=== PATIENT | female | born 1995 | race Caucasian/White ===

== ENCOUNTER 2017-01-06 16:28 | Emergency (ER) | payer BC, OTHER ==
--- NOTE | 2017-01-06 19:01 | ED ---
General Adult HPI - General Chief complaint: OB/Uterine Contractions Stated complaint: Vaginal Bleeding 6-8 weeks Source: patient Mode of arrival: ambulatory Limitations: no limitations - History of Present Illness Initial comments: 21-year-old female states she is about 8 weeks presenting for evaluation of vaginal bleeding. She states that she had sexual intercourse about 5 days ago and initially just had a little bit of spotting and it has progressed over this time to consistent vaginal bleeding. [facility] and had a transabdominal ultrasound and although they were able to visualize a gestational sac there were unable to determine heart tones. They advised that she come to the ED for further evaluation and ultrasound transvaginal. She states that she has no abdominal pain, dysuria, fevers, chills, nausea, vomiting. - Related Data Home Medications Medication Instructions Recorded Confirmed Ktp-Yhhq-Whehm Acid 1 cap PO DAILY 01/06/17 01/06/17 [-U Capsule (formulary)] Previous Rx's Medication Instructions Recorded Nitrofurantoin Monohyd/M-Cryst 100 mg PO Q12HR #14 cap 01/06/17 [Macrobid] Allergies Allergy/AdvReac Type Severity Reaction Status Date / Time No Known Allergies Allergy Verified 01/06/17 18:41 Review of Systems ROS Statement: Those systems with pertinent positive or pertinent negative responses have been documented in the HPI. ROS Other: All systems not noted in ROS Statement are negative. Constitutional: Denies: fever, chills Eyes: Denies: eye pain, eye discharge, vision change ENT: Denies: ear pain, throat pain Respiratory: Denies: cough, dyspnea Cardiovascular: Denies: chest pain, palpitations Endocrine: Denies: fatigue, polydipsia, polyuria Gastrointestinal: Denies: abdominal pain, nausea, vomiting, diarrhea, constipation, hematemesis, melena, hematochezia Genitourinary: Reports: other (vaginal discharge ). Denies: urgency, dysuria, frequency, hematuria, discharge Musculoskeletal: Denies: back pain, arthralgia, myalgia Skin: Denies: rash, lesions, change in color, change in hair/nails, pruritus Neurological: Denies: headache, weakness Psychiatric: Denies: anxiety, depression Hematological/Lymphatic: Denies: easy bleeding, easy bruising Past Medical History Past Medical History: No Reported History History of Any Multi-Drug Resistant Organisms: None Reported Past Surgical History: No Surgical Hx Reported Past Psychological History: No Psychological Hx Reported Smoking Status: Never smoker Past Alcohol Use History: None Reported Past Drug Use History: None Reported General Exam Limitations: no limitations General appearance: alert, in no apparent distress Head exam: Present: atraumatic, normocephalic, normal inspection Eye exam: Present: normal appearance, PERRL, EOMI. Absent: scleral icterus, conjunctival injection, periorbital swelling ENT exam: Present: normal exam, mucous membranes moist Neck exam: Present: normal inspection. Absent: tenderness, meningismus, lymphadenopathy Respiratory exam: Present: normal lung sounds bilaterally. Absent: respiratory distress, wheezes, rales, rhonchi, stridor Cardiovascular Exam: Present: regular rate, normal rhythm, normal heart sounds. Absent: systolic murmur, diastolic murmur, rubs, gallop, clicks GI/Abdominal exam: Present: soft, normal bowel sounds. Absent: distended, tenderness, guarding, rebound, rigid Extremities exam: Present: normal inspection, full ROM, normal capillary refill. Absent: tenderness, pedal edema, joint swelling, calf tenderness Back exam: Present: normal inspection Neurological exam: Present: alert, oriented X3, CN II-XII intact Psychiatric exam: Present: normal affect, normal mood Skin exam: Present: warm, dry, intact, normal color. Absent: rash Course Vital Signs 01/06/17 01/06/17 01/06/17 16:39 18:47 20:38 Temperature 100 F H 99.2 F 98.4 F Pulse Rate 107 H 80 75 Respiratory 20 16 16 Rate Blood Pressure 133/72 170/90 130/68 O2 Sat by Pulse 99 99 98 Oximetry 01/06/17 01/06/17 22:34 23:00 Temperature 98.7 F 97.6 F Pulse Rate 87 98 Respiratory 16 18 Rate Blood Pressure 129/69 115/60 O2 Sat by Pulse 99 99 Oximetry Medical Decision Making - Medical Decision Making 21-year-old female at an unknown gestational age presented for evaluation of vaginal bleeding. She states that she had intercourse 6 days ago and has progressively had vaginal bleeding since then. Physical examination she has no acute abnormalities and is in no apparent distress. Given the vaginal bleeding during there is concern for threatened miscarriage. We'll obtain ultrasound transvaginally for further evaluation and obtain labs. Labs significant for bacteriuria but given her current we'll require treatment. Patient prescribed her first dose of Macrobid here in the ED. Abdominal ultrasound showed a suspected early gestation yolk sac visualized but no embryonic/ pole visualized at this time. Estimated age at 5 weeks and 4 days. This continues a concern for miscarriage given that the patient has vaginal bleeding. Patient was informed of these results and offered pelvic exam which she accepted. On pelvic exam the cervical os was closed. She was advised to follow-up with her AUTOM[employer] Dr. Blanco on Tuesday but to return to this facility if her symptoms should worsen or persist. She was informed that she would be diagnosed as a threatened miscarriage. She acknowledged an understanding of this information and agreed with this plan of care. - Lab Data Result diagrams: 01/06/17 19:15 01/06/17 19:15 Lab Results 01/06/17 01/06/17 01/06/17 Range/Units 19:15 19:15 19:15 WBC 10.2 (4.0-11.0) k/uL RBC 4.82 (3.80-5.40) m/uL Hgb 13.5 (11.4-16.0) gm/dL Hct 40.4 (34.0-46.0) % MCV 83.9 (80.0-100.0) fL MCH 28.1 (25.0-35.0) pg MCHC 33.5 (31.0-37.0) g/dL RDW 14.4 (11.5-15.5) % Plt Count 316 (150-450) k/uL Neutrophils % 67 % Lymphocytes % 25 % Monocytes % 5 % Eosinophils % 2 % Basophils % 0 % Neutrophils # 6.9 (1.3-7.7) k/uL Lymphocytes # 2.5 (1.0-4.8) k/uL Monocytes # 0.5 (0-1.0) k/uL Eosinophils # 0.2 (0-0.7) k/uL Basophils # 0.0 (0-0.2) k/uL Sodium 142 (137-145) mmol/L Potassium 3.7 (3.5-5.1) mmol/L Chloride 106 (98-107) mmol/L Carbon Dioxide 21 L (22-30) mmol/L Anion Gap 15 mmol/L BUN 8 (7-17) mg/dL Creatinine 0.60 (0.52-1.04) mg/dL Est GFR (MDRD) Af Amer >60 (>60 ml/min/1.73 sqM) Est GFR (MDRD) Non-Af >60 (>60 ml/min/1.73 sqM) Glucose 92 (74-99) mg/dL Calcium 10.6 H (8.4-10.2) mg/dL Total Bilirubin 0.5 (0.2-1.3) mg/dL AST 20 (14-36) U/L ALT 29 (9-52) U/L Alkaline Phosphatase 71 (38-126) U/L Total Protein 7.7 (6.3-8.2) g/dL Albumin 4.8 (3.5-5.0) g/dL Lipase 65 (23-300) U/L HCG, Quant 41151.4 mIU/mL Urine Color Urine Appearance (Clear) Urine pH (5.0-8.0) Ur Specific [place] (1.001-1.035) Urine Protein (Negative) Urine Glucose (UA) (Negative) Urine Ketones (Negative) Urine Blood (Negative) Urine Nitrite (Negative) Urine Bilirubin (Negative) Urine Urobilinogen (<2.0) mg/dL Ur Leukocyte Esterase (Negative) Urine RBC (0-5) /hpf Urine WBC (0-5) /hpf Ur Squamous Epith Cells (0-4) /hpf Amorphous Sediment (None) /hpf Urine Bacteria (None) /hpf Urine Mucus (None) /hpf Blood Type A Positive Blood Type Recheck No 01/06/17 Range/Units 20:45 WBC (4.0-11.0) k/uL RBC (3.80-5.40) m/uL Hgb (11.4-16.0) gm/dL Hct (34.0-46.0) % MCV (80.0-100.0) fL MCH (25.0-35.0) pg MCHC (31.0-37.0) g/dL RDW (11.5-15.5) % Plt Count (150-450) k/uL Neutrophils % % Lymphocytes % % Monocytes % % Eosinophils % % Basophils % % Neutrophils # (1.3-7.7) k/uL Lymphocytes # (1.0-4.8) k/uL Monocytes # (0-1.0) k/uL Eosinophils # (0-0.7) k/uL Basophils # (0-0.2) k/uL Sodium (137-145) mmol/L Potassium (3.5-5.1) mmol/L Chloride (98-107) mmol/L Carbon Dioxide (22-30) mmol/L Anion Gap mmol/L BUN (7-17) mg/dL Creatinine (0.52-1.04) mg/dL Est GFR (MDRD) Af Amer (>60 ml/min/1.73 sqM) Est GFR (MDRD) Non-Af (>60 ml/min/1.73 sqM) Glucose (74-99) mg/dL Calcium (8.4-10.2) mg/dL Total Bilirubin (0.2-1.3) mg/dL AST (14-36) U/L ALT (9-52) U/L Alkaline Phosphatase (38-126) U/L Total Protein (6.3-8.2) g/dL Albumin (3.5-5.0) g/dL Lipase (23-300) U/L HCG, Quant mIU/mL Urine Color Yellow Urine Appearance Cloudy H (Clear) Urine pH 6.0 (5.0-8.0) Ur Specific [place] 1.016 (1.001-1.035) Urine Protein Trace H (Negative) Urine Glucose (UA) Negative (Negative) Urine Ketones Negative (Negative) Urine Blood Moderate H (Negative) Urine Nitrite Negative (Negative) Urine Bilirubin Negative (Negative) Urine Urobilinogen <2.0 (<2.0) mg/dL Ur Leukocyte Esterase Trace H (Negative) Urine RBC 7 H (0-5) /hpf Urine WBC 8 H (0-5) /hpf Ur Squamous Epith Cells 5 H (0-4) /hpf Amorphous Sediment Rare H (None) /hpf Urine Bacteria Occasional H (None) /hpf Urine Mucus Rare H (None) /hpf Blood Type Blood Type Recheck Disposition Clinical Impression: Threatened miscarriage, Vaginal bleeding Disposition: HOME SELF-CARE Condition: Stable Instructions: Threatened Miscarriage (ED), First Trimester Vaginal Bleed (ED) Prescriptions: Nitrofurantoin Monohyd/M-Cryst [Macrobid] 100 mg PO Q12HR #14 cap Referrals: Gavin Muller MD [Primary Care Provider] - 1-2 days Cleveland Blanco MD [STAFF PHYSICIAN] - 1-2 days Time of Disposition: 22:07
[2017-01-06 19:35] LABS: Basophils % (A) 0 %; CH 28.1; CHCM 33.6; Eosinophils # (A) 0.2 k/uL (0-0.7); Eosinophils % (A) 2 %; HCT 40.4 % (34.0-46.0); HGB 13.5 gm/dL (11.4-16.0); Luc # (Auto) 0.16; Luc % (Auto) 2; Lymphocytes # (A) 2.5 k/uL (1.0-4.8); Lymphocytes % (A) 25 %; MCH 28.1 pg (25.0-35.0); MCHC 33.5 g/dL (31.0-37.0); MCV 83.9 fL (80.0-100.0); Mean Platelet Volume 6.6; Monocytes # (A) 0.5 k/uL (0-1.0); Monocytes % (A) 5 %; Neutrophils # (A) 6.9 k/uL (1.3-7.7); Neutrophils % (A) 67 %; RBC 4.82 m/uL (3.80-5.40); RDW 14.4 % (11.5-15.5); WBC 10.2 k/uL (4.0-11.0); WBC (Perox) 10.27
[2017-01-06 19:36] LABS: ALT 29 U/L (9-52); AST 20 U/L (14-36); Alkaline Phosphatase 71 U/L (38-126); Anion Gap 15 mmol/L; Blood Urea Nitrogen 8 mg/dL (7-17); Calcium 10.6 mg/dL (8.4-10.2); Carbon Dioxide 21 mmol/L (22-30); Chloride 106 mmol/L (98-107); Glucose 92 mg/dL (74-99); Non-African American GFR(MDRD) >60 (>60 ml/min/1.73 sqM); Potassium 3.7 mmol/L (3.5-5.1); Sodium 142 mmol/L (137-145); Total Bilirubin 0.5 mg/dL (0.2-1.3); Total Protein 7.7 g/dL (6.3-8.2)
[2017-01-06 19:49] LABS: HCG,Quantitative Serum 14041.4 mIU/mL
--- NOTE | 2017-01-06 20:15 | US ---
EXAMINATION TYPE: US OB <=14 WKS TRANSVAG EXAM PERFORMED: Transvaginal (TV) and Transabdominal (TA) CLINICAL HISTORY: Pain. Spotting Date of LMP: 10/29/2016 Beta HC,041 DATE OF EXAM: 01/06/2017 7:57 PM COMPARISON: NONE EXAM MEASUREMENTS: GESTATIONAL AGE / DATING Physician Established: Not established Dates by LMP: (9 weeks/6 days) EDC: 08/05/2017 Dates by First Scan: No previous at this facility Dates by Current Scan for: (5 weeks/4 days) EDC: 09/04/2017 MATERNAL ANATOMY Uterus: 7.8 x 7.1 x 7.4 cm Right Ovary: 2.4 x 1.9 x 2.4 Left Ovary: 2.0 x 1.8 x 1.5 cm Post CDS / Adnexa: wnl Presence of free fluid: No Presence of corpus luteal cyst: Yes, right ovary measuring 1.7 x 1.7 x 1.3 cm Presence of subchorionic bleed: No GESTATION / SURVEY MSD: 1.37 cm (5 weeks/4 days) Yolk Sac (normal less than 6mm): 5 mm IUP: Single intrauterine identified, with spherical yolk sac but without embryonic/ po le seen at this time. IMPRESSION: SUSPECT EARLY GESTATION. YOLK SAC VISUALIZED, BUT NO EMBRYONIC/ POLE VISUALIZED AT THIS TIME.
[2017-01-06 21:02] LABS: Amorphous Sediment,Urine Rare /hpf; Appearance,Urine Cloudy (Clear); Bacteria,Urine Occasional /hpf; Bilirubin,Urine Negative (Negative); Glucose,Urine (UA) Negative (Negative); Ketones,Urine Negative (Negative); Leukocyte Esterase,Urine Trace (Negative); Mucus,Urine Rare /hpf; Nitrite,Urine Negative (Negative); Particle Count 4448; Protein,Urine Trace (Negative); RBC,Urine 7 /hpf (0-5); Specific Gravity,Urine 1.016 (1.001-1.035); Squamous Epithelial Cell,Urine 5 /hpf (0-4); UA Billing (MACRO vs. MICRO) MICRO; Urobilinogen,Urine <2.0 mg/dL (<2.0); WBC,Urine 8 /hpf (0-5)
[2017-01-06] MEDS ORDERED: NITROFURANTOIN MONOHYD/M-CRYST 100 MG CAP PO STA (21:08)
[2017-01-06 23:01] VITALS: BP 115/60; PULSE 98; RESP 18; TEMP 97.6
== END 2017-01-06 23:01 | disposition home or self-care (01) ==
LOC: EC 16:28
DX: O20.0 Threatened abortion (principal); Z3A.08 8 weeks gestation of pregnancy; Z79.899 Other long term (current) drug therapy
CPT/HCPCS: 36415; 76801; 76817; 80053; 81001; 83690; 84702; 85025; 86900; 86901; 99284

== ENCOUNTER → 2017-01-14 | Outpatient (CLI) | payer BC, OTHER ==
--- NOTE | 2017-01-14 15:27 | US ---
EXAMINATION TYPE: US OB <=14 wks transvag DATE OF EXAM: 01/14/2017 1:19 PM COMPARISON: 01/06/2017 CLINICAL HISTORY: 22-year-old female with abnormal Ultrasound Z36. Bleeding EXAM PERFORMED: Multiple transabdominal sonographic images of the pelvis are obtained. Transvaginal scanning was medically necessary to better evaluate the anatomy. EXAM MEASUREMENTS: GESTATIONAL AGE / DATING Physician Established: ( 7 weeks/2 days) EDC: 08/31/2017 Dates by LMP: EDC: 08/05/2017 Dates by First Scan: ( 6 weeks/5 days) EDC: 09/04/2017 Dates by Current Scan for: N/A MATERNAL ANATOMY Uterus: 9.1 x 6.5 x 5.0cm Right Ovary: 2.8 x 2.4 x 1.9cm Left Ovary: 3.1 x 2.5 x 1.5cm Post CDS / Adnexa: wnl Presence of free fluid: no Presence of corpus luteal cyst: not seen Presence of subchorionic bleed: no GESTATION / SURVEY No IUP seen today Endometrium = 1.6cm DELIVERER OUTSIDE NOTES: Probable spontaneous IMPRESSION: Thickened endometrium (1.6 cm) without any visualized intrauterine . Correlate with serial b eta hCG as interval spontaneous is suggested.
== END | disposition home or self-care (01) ==
LOC: RADUSWWP 12:53
PROVIDERS: ATTEND Obstetrics & Gynecology
DX: Z36 Encounter for antenatal screening of mother (principal); R93.8 Abnormal findings on diagnostic imaging of other specified body structures
CPT/HCPCS: 76801; 76817

== ENCOUNTER 2018-09-04 05:55 | Inpatient (IN) | payer BC, OTHER ==
[2018-09-04] MEDS ORDERED: CARBOPROST TROMETHAMINE 250 MCG/ML 1 ML AMP IM PRN (06:07)
[2018-09-04] MEDS ORDERED: METHYLERGONOVINE 0.2 MG/ML 1 ML AMP IM PRN (06:07)
[2018-09-04] MEDS ORDERED: OXYTOCIN 10 UNIT/ML 1 ML VIAL IM PRN (06:07)
[2018-09-04] MEDS ORDERED: LIDOCAINE 1% INJ 10MG/ML (20 ML MDV) SQ PRN (06:07)
[2018-09-04] MEDS ORDERED: TERBUTALINE 1 MG/ML VIAL SQ PRN (06:07)
[2018-09-04] MEDS ORDERED: OXYTOCIN 20 UNITS/1000 ML NS 1,000 ML IV SCH ×2 (06:15→17:30)
[2018-09-04] MEDS: LACTATED RINGERS 1,000 ML IV SCH ×3 (06:16→14:33)
[2018-09-04 06:21] VITALS: BMI 40.0
[2018-09-04 06:26] LABS: Basophils % (A) 0 %; Eosinophils # (A) 0.2 k/uL (0-0.7); Eosinophils % (A) 2 %; HCT 35.6 % (34.0-46.0); HGB 11.9 gm/dL (11.4-16.0); Hypochromasia Slight; Lymphocytes # (A) 2.5 k/uL (1.0-4.8); Lymphocytes % (A) 26 %; MCH 27.5 pg (25.0-35.0); MCHC 33.3 g/dL (31.0-37.0); MCV 82.6 fL (80.0-100.0); Mean Platelet Volume 8.2; Monocytes # (A) 0.5 k/uL (0-1.0); Monocytes % (A) 6 %; Neutrophils # (A) 6.1 k/uL (1.3-7.7); Neutrophils % (A) 64 %; Platelet Count 280 k/uL (150-450); RBC 4.31 m/uL (3.80-5.40); RDW 14.9 % (11.5-15.5); WBC 9.6 k/uL (3.8-10.6)
[2018-09-04] MEDS ORDERED: SODIUM CHLORIDE 0.9% 100 ML BAG ONE (11:30)
[2018-09-04] MEDS ORDERED: ROPIVACAINE 5MG/ML 20ML VIAL ONE (11:30)
[2018-09-04] MEDS ORDERED: fentaNYL (PF) 50 MCG/ML 5 ML AMP ONE (11:30)
[2018-09-04] MEDS ORDERED: BENZOCAINE/MENTHOL SPRAY 1 GM/SPRAY AEROSOL TOPICAL PRN (17:25)
[2018-09-04] MEDS ORDERED: SIMETHICONE 80 MG CHEWABLE PO PRN (17:25)
[2018-09-04] MEDS ORDERED: WITCH HAZEL 1 EACH MED..PAD TOPICAL PRN (17:25)
[2018-09-04] MEDS ORDERED: diphenhydrAMINE 50 MG/ML 1 ML VIAL IVP PRN ×2 (17:25)
[2018-09-04] MEDS ORDERED: HYDROCORTISONE 2.5% RECTAL CREAM 30 GM TUBE RECTAL PRN (17:25)
[2018-09-04] MEDS ORDERED: diphenhydrAMINE 50 MG CAP PO PRN (17:25)
[2018-09-04] MEDS ORDERED: LANOLIN CREAM 5 GM TUBE TOPICAL PRN (17:25)
[2018-09-04] MEDS ORDERED: ACETAMINOPHEN TAB 325 MG TAB PO PRN (17:25)
[2018-09-04] MEDS ORDERED: ZOLPIDEM 5 MG TAB PO PRN (17:25)
[2018-09-04] MEDS ORDERED: diphenhydrAMINE 25 MG CAP PO PRN (17:25)
[2018-09-04] MEDS: IBUPROFEN 600 MG TAB PO PRN (19:15)
--- NOTE | 2018-09-04 20:03 | P.HPOB ---
History of Present Illness H&P Date: 09/04/18 Chief Complaint: Induction of Labor 23 year old presents at 40 weeks 3 days for induction of labor. Her cervix is 3 cm dilated, 80% effaced, and -2 station. She is estevan irregularly. heart tones 135-140 with moderate variability and reactive. Review of Systems All systems: negative Constitutional: Denies chills, Denies fever Eyes: denies blurred vision, denies pain Ears, nose, mouth and throat: Denies headache, Denies sore throat Cardiovascular: Denies chest pain, Denies shortness of breath Respiratory: Denies cough Gastrointestinal: Denies abdominal pain, Denies diarrhea, Denies nausea, Denies vomiting Genitourinary: Denies dysuria, Denies hematuria Musculoskeletal: Denies myalgias Integumentary: Denies pruritus, Denies rash Neurological: Denies numbness, Denies weakness Psychiatric: Denies anxiety, Denies depression Endocrine: Denies fatigue, Denies weight change Past Medical History Past Medical History: No Reported History Additional Past Medical History / Comment(s): Obstetric history: First was a spontaneous . This is her second . She's had care with me since 11 weeks gestation. Blood type is A+, amylase negative, rubella nonimmune, hep is B- RPR nonreactive, toxo negative. History of Any Multi-Drug Resistant Organisms: None Reported Past Surgical History: No Surgical Hx Reported Past Anesthesia/Blood Transfusion Reactions: No Reported Reaction Past Psychological History: No Psychological Hx Reported Smoking Status: Never smoker Past Alcohol Use History: None Reported Past Drug Use History: None Reported - Past Family History Father Family Medical History: Diabetes Mellitus Medications and Allergies Home Medications Medication Instructions Recorded Confirmed Type Iyd-Terf-Pzzzx Acid 1 cap PO DAILY 01/06/17 09/04/18 History [-U Capsule (formulary)] Allergies Allergy/AdvReac Type Severity Reaction Status Date / Time No Known Allergies Allergy Verified 09/04/18 06:07 Exam Osteopathic Statement: *. No significant issues noted on an osteopathic structural exam other than those noted in the History and Physical/Consult. Vital Signs Temp Pulse Resp BP Pulse Ox 09/04/18 18:44 98.9 F 127 H 18 134/61 09/04/18 18:14 120 H 18 120/62 09/04/18 17:59 125 H 18 120/63 09/04/18 17:44 125 H 18 119/67 09/04/18 17:29 98.6 F 107 H 18 115/61 09/04/18 17:14 102 H 18 120/66 09/04/18 06:06 98.1 F 117 H 16 138/81 98 Intake and Output 09/04/18 09/04/18 09/04/18 06:59 14:59 22:59 Output Total 200 Balance -200 Output: Urine 200 Other: Weight 112.491 kg Heart: Regular rate and rhythm Lungs: Clear to auscultation bilaterally Abdomen: Soft, nontender Extremities: Negative Homans sign Results Result Diagrams: 09/04/18 06:15 Assessment and Plan (1) Normal labor Current Visit: Yes Status: Acute Code(s): O80 - ENCOUNTER FOR FULL-TERM UNCOMPLICATED DELIVERY; Z37.9 - OUTCOME OF DELIVERY, UNSPECIFIED SNOMED Code(s ): 67081263 Plan: 1. induction of labor with amniotomy and pitocin 2. anticipate normal vaginal delivery
--- NOTE | 2018-09-04 20:05 | P.PROBDLV ---
Vaginal Delivery Note - . Vaginal Delivery Note: 23 year old presents at 40 weeks 3 days for induction of labor. Her cervix is 3 cm dilated, 80% effaced, and -2 station. She is estevan irregularly. heart tones 135-140 with moderate variability and reactive. Amniotomy was performed at 7:45 AM clear fluid noted, Pitocin had been started. When she was 5 cm dilated she was uncomfortable and wanted epidural and did get this for pain control. Her cervix was completely dilated at 1505. She pushed, delivered a viable female infant over intact perineum under epidural anesthesia at 1622. Head delivered OA, nuchal cord 1 easily reduced, anterior shoulder delivered gentle downward guidance all by posterior shoulder and rest of body. Nose and mouth bulb suctioned, cord clamped and cut, infant placed on mother's abdomen. Apgars 4 at 1 minute, 5 at 5 minutes, 8 at 10 minutes. Weight 8 lbs. 11 oz. Placenta delivered spontaneous the, intact with three-vessel cord at 1626. Vagina, cervix, and perineum were inspected. Second -degree midline laceration and bilateral sulcal tears were repaired with 2-0 Vicryl. Estimated blood loss 300 mL mother and baby in stable condition.
[2018-09-04] MEDS: SENNOSIDES-DOCUSATE SODIUM 1 EACH TAB PO SCH (21:15)
[2018-09-05 07:38] LABS: Basophils # (A) 0.1 k/uL (0-0.2); Basophils % (A) 0 %; Eosinophils # (A) 0.1 k/uL (0-0.7); Eosinophils % (A) 1 %; HCT 25.9 % (34.0-46.0); Hypochromasia Slight; Lymphocytes # (A) 2.9 k/uL (1.0-4.8); Lymphocytes % (A) 21 %; MCH 27.4 pg (25.0-35.0); MCHC 32.8 g/dL (31.0-37.0); MCV 83.5 fL (80.0-100.0); Mean Platelet Volume 8.5; Monocytes # (A) 0.9 k/uL (0-1.0); Monocytes % (A) 6 %; Neutrophils # (A) 9.8 k/uL (1.3-7.7); Neutrophils % (A) 70 %; Platelet Count 247 k/uL (150-450); RBC 3.11 m/uL (3.80-5.40); RDW 15.4 % (11.5-15.5)
[2018-09-05] MEDS: SENNOSIDES-DOCUSATE SODIUM 1 EACH TAB PO SCH ×2 (07:48→22:09)
[2018-09-05 07:49] LABS: HGB 8.5 gm/dL (11.4-16.0)
--- NOTE | 2018-09-05 08:36 | P.PNOBGVD ---
Subjective - Subjective Principal diagnosis: S/P NVD PPD #1 Interval history: Pt seen and examined. Denies N/V, F/C, CP, SOB, calf pain. She does still have a lot of swelling in the vulva. Using ice and witch marquis. Patient reports: Reports appetite normal, Reports voiding normally, Reports pain well controlled, Reports ambulating normally Objective - Latest Vital Signs Latest vital signs: Vital Signs Temp Pulse Resp BP Pulse Ox 09/05/18 07:44 98.2 F 94 18 134/79 100 09/05/18 04:00 98.2 F 85 18 128/70 99 09/05/18 00:00 98.8 F 112 H 17 121/76 98 09/04/18 20:00 112 H 130/85 09/04/18 19:14 98.8 F 130 H 18 122/67 98 09/04/18 18:44 98.9 F 127 H 18 134/61 09/04/18 18:14 120 H 18 120/62 09/04/18 17:59 125 H 18 120/63 09/04/18 17:44 125 H 18 119/67 09/04/18 17:29 98.6 F 107 H 18 115/61 09/04/18 17:14 102 H 18 120/66 Intake and Output 09/04/18 09/05/18 09/05/18 22:59 06:59 14:59 Output Total 200 Balance -200 Output: Urine 200 Other: # Voids 1 - Exam Lungs: bilateral: normal Chest: Normal S1, Normal S2 Extremities: Present: normal Abdomen: Present: normal appearance, soft Uterus: Present: normal, firm - Labs Labs: Abnormal Lab Results - Last 24 Hours (Table) 09/05/18 Range/Units 06:40 WBC 14.0 H (3.8-10.6) k/uL RBC 3.11 L (3.80-5.40) m/uL Hgb 8.5 L D (11.4-16.0) gm/dL Hct 25.9 L (34.0-46.0) % Neutrophils # 9.8 H (1.3-7.7) k/uL Assessment and Plan (1) Normal labor Current Visit: Yes Status: Resolved Code(s): O80 - ENCOUNTER FOR FULL-TERM UNCOMPLICATED DELIVERY; Z37.9 - OUTCOME OF DELIVERY, UNSPECIFIED SNOMED Code(s ): 08946716 (2) Normal vaginal delivery Current Visit: Yes Status: Acute Code(s): O80 - ENCOUNTER FOR FULL-TERM UNCOMPLICATED DELIVERY SNOMED Code(s): 69889427 Plan: 1. cont pp care
[2018-09-05] MEDS ORDERED: MEASLES-MUMPS-RUBELLA VACC/PF 12,500 UNIT/0.5 ML VIAL SQ ONE (09:19)
[2018-09-05] MEDS: IBUPROFEN 600 MG TAB PO PRN ×2 (14:37→21:59)
[2018-09-06] MEDS: SENNOSIDES-DOCUSATE SODIUM 1 EACH TAB PO SCH (08:00)
--- NOTE | 2018-09-06 08:33 | P.DS ---
Providers Date of admission: 09/04/18 05:55 Expected date of discharge: 09/06/18 Attending physician: Kaykay Jacobsen Primary care physician: Stated None - Discharge Diagnosis(es) (1) Normal labor Current Visit: Yes Status: Resolved (2) Normal vaginal delivery Current Visit: Yes Status: Acute Hospital Course: Presented for induction of labor. She underwent normal vaginal delivery. her course was uncomplicated. She'll be discharged home day #2 in stable condition to follow-up with me in 6 weeks. Plan - Discharge Summary New Discharge Prescriptions: New Ibuprofen [Motrin] 800 mg PO Q8H PRN #30 tab PRN Reason: Pain No Action Stv-Ayvg-Sajte Acid [-U Capsule (formulary)] 1 cap PO DAILY Discharge Medication List Aqt-Dwit-Uhpgf Acid [-U Capsule (formulary)] 1 cap PO DAILY [History] Ibuprofen [Motrin] 800 mg PO Q8H PRN #30 tab 09/06/18 [Rx] Follow up Appointment(s)/Referral(s): Kaykay Jacobsen DO [Doctor of Osteopathic Medicine] - 6 Weeks Discharge Disposition: HOME SELF-CARE
[2018-09-06] MEDS: IBUPROFEN 600 MG TAB PO PRN (08:49)
[2018-09-06 09:25] VITALS: RESP 18
[2018-09-06 16:39] VITALS: BP 128/70; PULSE 106; TEMP 98.4
== END 2018-09-06 18:13 | disposition home or self-care (01) | DRG 807 ==
LOC: 4FBP 05:55
PROVIDERS: ADMIT Obstetrics & Gynecology; ATTEND Obstetrics & Gynecology
PROC: 10E0XZZ Delivery of Products of Conception, External Approach (ICD-10-PCS; principal; 2018-09-04)
PROC: 00HU33Z Insertion of Infusion Device into Spinal Canal, Percutaneous Approach (ICD-10-PCS; 2018-09-04)
PROC: 3E0R3BZ Introduction of Anesthetic Agent into Spinal Canal, Percutaneous Approach (ICD-10-PCS; 2018-09-04)
PROC: 10907ZC Drainage of Amniotic Fluid, Therapeutic from Products of Conception, Via Natural or Artificial Opening (ICD-10-PCS; 2018-09-04)
PROC: 3E033VJ Introduction of Other Hormone into Peripheral Vein, Percutaneous Approach (ICD-10-PCS; 2018-09-04)
DX: O69.81X0 Labor and delivery complicated by cord around neck, without compression, not applicable or unspecified (principal); Z37.0 Single live birth; O99.62 Diseases of the digestive system complicating childbirth; K21.9 Gastro-esophageal reflux disease without esophagitis; Z3A.40 40 weeks gestation of pregnancy; Z83.3 Family history of diabetes mellitus
CPT/HCPCS: 85025; 86850; 86900; 86901; 88307; 90707

== ENCOUNTER 2020-05-09 06:00 | Inpatient (IN) | payer BC, OTHER ==
[2020-05-09] MEDS ORDERED: CARBOPROST TROMETHAMINE 250 MCG/ML 1 ML AMP IM PRN (06:19)
[2020-05-09] MEDS ORDERED: LIDOCAINE 0.5% (PF) 5 MG/ML (50 ML SDV) SQ PRN (06:19)
[2020-05-09] MEDS ORDERED: METHYLERGONOVINE 0.2 MG/ML 1 ML AMP IM PRN (06:19)
[2020-05-09] MEDS ORDERED: OXYTOCIN 30 UNITS/500 ML NS 30 UNIT in SALINE 1 500ML.BAG IV SCH (06:19)
[2020-05-09] MEDS ORDERED: OXYTOCIN 10 UNIT/ML 1 ML VIAL IM PRN (06:19)
[2020-05-09] MEDS ORDERED: TERBUTALINE 1 MG/ML VIAL SQ PRN (06:19)
[2020-05-09 06:48] LABS: Basophils # (A) 0.1 k/uL (0-0.2); Basophils % (A) 1 %; Eosinophils # (A) 0.2 k/uL (0-0.7); Eosinophils % (A) 2 %; HCT 38.6 % (34.0-46.0); HGB 12.7 gm/dL (11.4-16.0); Lymphocytes # (A) 2.6 k/uL (1.0-4.8); Lymphocytes % (A) 29 %; MCHC 32.9 g/dL (31.0-37.0); MCV 85.2 fL (80.0-100.0); Mean Platelet Volume 7.4; Monocytes # (A) 0.4 k/uL (0-1.0); Monocytes % (A) 5 %; Neutrophils # (A) 5.7 k/uL (1.3-7.7); Neutrophils % (A) 62 %; Platelet Count 275 k/uL (150-450); RBC 4.53 m/uL (3.80-5.40); RDW 14.4 % (11.5-15.5); WBC 9.2 k/uL (3.8-10.6)
[2020-05-09] MEDS: LACTATED RINGERS 1,000 ML IV SCH ×2 (06:48→11:14)
[2020-05-09] MEDS ORDERED: SODIUM CHLORIDE 0.9% 100 ML BAG ONE (10:35)
[2020-05-09] MEDS ORDERED: fentaNYL (PF) 50 MCG/ML 5 ML AMP ONE (10:35)
[2020-05-09] MEDS ORDERED: ROPIVACAINE 5MG/ML 20ML VIAL ONE (10:35)
--- NOTE | 2020-05-09 12:55 | P.HPOB ---
History of Present Illness H&P Date: 05/09/20 Chief Complaint: Induction of labor 25-year-old presents at 38 weeks for induction of labor. The baby is IUGR, ultrasound one week ago showed 5 lbs. 5 oz. under the 10th percentile for weight, CRIS was 13 cm. Her cervix is 3 cm solid, 70% effaced, and -2 station. She is estevan irregularly. heart tones 130 with moderate variability and reactive. Review of Systems All systems: negative Constitutional: Denies chills, Denies fever Eyes: denies blurred vision, denies pain Ears, nose, mouth and throat: Denies headache, Denies sore throat Cardiovascular: Denies chest pain, Denies shortness of breath Respiratory: Denies cough Gastrointestinal: Denies abdominal pain, Denies diarrhea, Denies nausea, Denies vomiting Genitourinary: Denies dysuria, Denies hematuria Musculoskeletal: Denies myalgias Integumentary: Denies pruritus, Denies rash Neurological: Denies numbness, Denies weakness Psychiatric: Denies anxiety, Denies depression Endocrine: Denies fatigue, Denies weight change Past Medical History Past Medical History: No Reported History Additional Past Medical History / Comment(s): Obstetric history: First two pregnancies were spontaneous . Third was a normal vaginal delivery 8 lbs. 11 oz. This is her fourth . She's had care with ms Blood type is A+, GBS negative, rubella immune, hep is B- RPR non reactive, toxo negative. History of Any Multi-Drug Resistant Organisms: None Reported Past Surgical History: No Surgical Hx Reported Past Anesthesia/Blood Transfusion Reactions: No Reported Reaction Past Psychological History: No Psychological Hx Reported Smoking Status: Never smoker Past Alcohol Use History: None Reported Past Drug Use History: None Reported - Past Family History Father Family Medical History: Diabetes Mellitus Medications and Allergies Home Medications Medication Instructions Recorded Confirmed Type No Known Home Medications 05/09/20 05/09/20 History Allergies Allergy/AdvReac Type Severity Reaction Status Date / Time No Known Allergies Allergy Verified 05/09/20 06:18 Exam Osteopathic Statement: *. No significant issues noted on an osteopathic structural exam other than those noted in the History and Physical/Consult. Vital Signs Temp Pulse Resp BP Pulse Ox 05/09/20 06:25 97.8 F 109 H 16 133/63 95 Intake and Output 05/08/20 05/09/20 05/09/20 22:59 06:59 14:59 Other: Weight 108.862 kg Heart: Regular rate and rhythm Lungs: Clear to auscultation bilaterally Abdomen: Soft, nontender Extremities: Negative Homans sign Results Result Diagrams: 05/09/20 06:20 Assessment and Plan (1) Normal labor Current Visit: No Status: Resolved Code(s): O80 - ENCOUNTER FOR FULL-TERM U NCOMPLICATED DELIVERY; Z37.9 - OUTCOME OF DELIVERY, UNSPECIFIED SNOMED Code(s): 71137032 Plan: 1. Amniotomy and Pitocin for induction of labor 2. Anticipate normal vaginal delivery
[2020-05-09] MEDS ORDERED: ZOLPIDEM 5 MG TAB PO PRN (14:49)
[2020-05-09] MEDS ORDERED: diphenhydrAMINE 50 MG CAP PO PRN (14:49)
[2020-05-09] MEDS ORDERED: IBUPROFEN 600 MG TAB PO PRN (14:49)
[2020-05-09] MEDS ORDERED: diphenhydrAMINE 25 MG CAP PO PRN (14:49)
[2020-05-09] MEDS ORDERED: HYDROCORTISONE 2.5% RECTAL CREAM 30 GM TUBE RECTAL PRN (14:49)
[2020-05-09] MEDS ORDERED: BENZOCAINE/MENTHOL SPRAY 1 GM/SPRAY AEROSOL TOPICAL PRN (14:49)
[2020-05-09] MEDS ORDERED: SIMETHICONE 80 MG CHEWABLE PO PRN (14:49)
[2020-05-09] MEDS ORDERED: LANOLIN CREAM 5 GM TUBE TOPICAL PRN (14:49)
[2020-05-09] MEDS ORDERED: OXYTOCIN 20 UNITS/1000 ML NS 1,000 ML IV SCH (15:00)
--- NOTE | 2020-05-09 17:45 | P.PROBDLV ---
Vaginal Delivery Note - . Vaginal Delivery Note: 25-year-old presents at 38 weeks for induction of labor. The baby is IUGR, ultrasound one week ago showed 5 lbs. 5 oz. under the 10th percentile for weight, CRIS was 13 cm. Her cervix is 3 cm solid, 70% effaced, and -2 station. She is estevan irregularly. heart tones 130 with moderate variability and reactive. Pitocin was started. Amniotomy performed at 7:56 AM clear fluid noted. When she was uncomfortable she did get an epidural. Her cervix was completely dilated just after 1330. She pushed, delivered a viable female over intact perineum under epidural anesthesia at 1350. Head delivered OA, anterior shoulder delivered gentle downward guidance of the posterior shoulder and rest of body. Nose and mouth bulb suctioned, cord clamped and cut, infant placed mother's abdomen. Apgars 9, 9, weight 6 pounds 0.5 ounces. Placenta delivered spontaneous, intact with three-vessel cord at 1352. Vagina, cervix, perineum inspected. Second-degree midline laceration was repaired with 3-0 Vicryl. Quantitative blood loss 128 mL. Mother and baby in stable condition.
[2020-05-09] MEDS: SENNOSIDES-DOCUSATE SODIUM 1 EACH TAB PO SCH (20:10)
[2020-05-10 00:30] VITALS: RESP 16
[2020-05-10 07:21] LABS: Basophils # (A) 0.1 k/uL (0-0.2); Basophils % (A) 1 %; Eosinophils # (A) 0.3 k/uL (0-0.7); Eosinophils % (A) 3 %; HCT 33.5 % (34.0-46.0); HGB 10.9 gm/dL (11.4-16.0); Lymphocytes # (A) 2.6 k/uL (1.0-4.8); Lymphocytes % (A) 25 %; MCH 27.8 pg (25.0-35.0); MCHC 32.4 g/dL (31.0-37.0); MCV 85.9 fL (80.0-100.0); Mean Platelet Volume 7.7; Monocytes # (A) 0.5 k/uL (0-1.0); Monocytes % (A) 5 %; Neutrophils # (A) 6.7 k/uL (1.3-7.7); Neutrophils % (A) 66 %; Platelet Count 246 k/uL (150-450); RDW 14.5 % (11.5-15.5); WBC 10.2 k/uL (3.8-10.6)
[2020-05-10] MEDS: SENNOSIDES-DOCUSATE SODIUM 1 EACH TAB PO SCH (08:29)
[2020-05-10] MEDS: ACETAMINOPHEN TAB 325 MG TAB PO PRN ×2 (08:29→12:07)
--- NOTE | 2020-05-10 09:41 | P.DS ---
Providers Date of admission: 05/09/20 06:05 Expected date of discharge: 05/10/20 Attending physician: Kaykay Jacobsen Primary care physician: Stated None - Discharge Diagnosis(es) (1) Normal vaginal delivery Current Visit: No Status: Acute Hospital Course: Patient presented for induction of labor. She underwent a normal vaginal delivery. course was uncomplicated. She denies nausea, vomiting, chest pain, shortness of breath or any calf pain. She'll be discharged home day #1 in stable condition to follow-up with me in 6 weeks. Plan - Discharge Summary New Discharge Prescriptions: New Ibuprofen [Motrin] 600 mg PO Q6HR PRN #30 tab PRN Reason: Mild Pain Or Fever >= 100.5 Discharge Medication List Ibuprofen [Motrin] 600 mg PO Q6HR PRN #30 tab 05/10/20 [Rx] Follow up Appointment(s)/Referral(s): Kaykay Jacobsen DO [Doctor of Osteopathic Medicine] - 6 Weeks Discharge Disposition: HOME SELF-CARE
[2020-05-10 12:00] VITALS: BP 122/80; PULSE 70; TEMP 97.9
== END 2020-05-10 15:00 | disposition home or self-care (01) | DRG 807 ==
LOC: 4FBP 06:05
PROVIDERS: ADMIT Obstetrics & Gynecology; ATTEND Obstetrics & Gynecology
PROC: 00HU33Z Insertion of Infusion Device into Spinal Canal, Percutaneous Approach (ICD-10-PCS; principal; 2020-05-09)
PROC: 0KQM0ZZ Repair Perineum Muscle, Open Approach (ICD-10-PCS; principal; 2020-05-09)
PROC: 10E0XZZ Delivery of Products of Conception, External Approach (ICD-10-PCS; principal; 2020-05-09)
PROC: 3E0R3BZ Introduction of Anesthetic Agent into Spinal Canal, Percutaneous Approach (ICD-10-PCS; principal; 2020-05-09)
DX: O70.1 Second degree perineal laceration during delivery (principal); Z37.0 Single live birth; Z3A.38 38 weeks gestation of pregnancy; Z83.3 Family history of diabetes mellitus
CPT/HCPCS: 85025; 86850; 86900; 86901; 88307

== ENCOUNTER → 2022-12-23 | Outpatient (CLI) | payer OTHER ==
--- NOTE | 2022-12-23 16:33 | US ---
EXAMINATION TYPE: Transabdominal DATE OF EXAM: 12/23/2022 4:18 PM COMPARISON: NONE CLINICAL INDICATION: Female, 27 years old with history of Z36.89 CONFIRM GESTATIONAL AGE AND VIABILIT Y; Dates EXAM PERFORMED: Transabdominal (TA) EXAM MEASUREMENTS: GESTATIONAL AGE / DATING Physician Established: Not yet established Dates by LMP: (12 weeks/4 days) EDC: 07/03/2023 Dates by First Scan: No previous this is first scan Dates by Current Scan for: (12 weeks/3 days) EDC: 07/04/2023 MATERNAL ANATOMY Uterus: 15.0 x 10.0 x 7.5 cm Right Ovary: 3.0 x 1.9 x 1.1 cm Left Ovary: not visualized Post CDS / Adnexa: wnl Presence of free fluid: no Presence of corpus luteal cyst: not visualized Presence of subchorionic bleed: no GESTATION / SURVEY CRL: 5.8 cm (12 weeks/3 days) MSD: seen, not measured Yolk Sac (normal less than 6mm): Not visualized Heart Rate: 155 bpm Rhythm: Normal IUP: Viable IUP Age Appropriate Anatomy Limbs: Visualized Calvarium: Visualized Date of LMP: 09/26/2022, Beta HcG (if available): Not available at this time GS and CRL visualized at time of scan with FHT's of 155 bpm. Single live intrauterine gestation. IMPRESSION: Single live intrauterine gestation with estimated gestational age of 12 weeks 3 days and estimated du e date of 07/04/2023.
== END | disposition home or self-care (01) ==
LOC: RADUSWWP 15:51
PROVIDERS: ATTEND Obstetrics & Gynecology
DX: Z36.89 Encounter for other specified antenatal screening (principal); Z3A.12 12 weeks gestation of pregnancy
CPT/HCPCS: 76801

== ENCOUNTER 2023-01-05 20:40 | Emergency (ER) | payer OTHER ==
--- NOTE | 2023-01-05 22:18 | ED ---
Female Urogenital HPI - General Chief complaint: Vaginal Bleeding Stated complaint: Vaginal Bleeding, 15 weeks Time Seen by Provider: 01/05/23 22:16 Source: patient, RN notes reviewed Mode of arrival: ambulatory Limitations: no limitations - History of Present Illness Initial comments: Patient is a A1 female at 15 weeks presents to the emergency department for vaginal bleeding. Patient noticed blood on toilet paper with one small stringy clot when wiping today. She denies any abdominal pain, burning with urination. Denies fever, chills, nausea, vomiting. Patient follows with Dr. Jacobsen she has had a normal ultrasound for this . Last Menstrual Period: 09/26/22 - Related Data Previous Rx's Medication Instructions Recorded Ibuprofen [Motrin] 600 mg PO Q6HR PRN #30 tab 05/10/20 Cephalexin [Keflex] 500 mg PO Q12HR #10 cap 01/06/23 Allergies Allergy/AdvReac Type Severity Reaction Status Date / Time No Known Allergies Allergy Verified 01/05/23 22:09 Review of Systems ROS Statement: Those systems with pertinent positive or pertinent negative responses have been documented in the HPI. ROS Other: All systems not noted in ROS Statement are negative. Past Medical History Past Medical History: No Reported History Additional Past Medical History / Comment(s): Obstetric history: First two pregnancies were spontaneous . Third was a normal vaginal delivery 8 lbs. 11 oz. This is her fourth . She's had care with al Blood type is A+, GBS negative, rubella immune, hep is B- RPR nonreactive, toxo negative. History of Any Multi-Drug Resistant Organisms: None Reported Past Surgical History: No Surgical Hx Reported Past Anesthesia/Blood Transfusion Reactions: No Reported Reaction Past Psychological History: No Psychological Hx Reported Smoking Status: Never smoker Past Alcohol Use History: None Reported Past Drug Use History: None Reported - Past Family History Father Family Medical History: Diabetes Mellitus General Exam - General Exam Comments Initial Comments: Visual Physical Exam Vital signs reviewed General: Well-appearing, nontoxic, no acute distress. Head: Normocephalic, atraumatic Eyes: PERRLA, EOMI ENT: Airway patent Chest: Nonlabored breathing Skin: No visual rash, normal skin tone Neuro: Alert and oriented 3 Musculoskeletal: No gross abnormalities Limitations: no limitations Eye exam: Present: normal appearance, PERRL, EOMI. Absent: scleral icterus, conjunctival injection, periorbital swelling Respiratory exam: Present: normal lung sounds bilaterally. Absent: respiratory distress, wheezes, rales, rhonchi, stridor Cardiovascular Exam: Present: regular rate, normal rhythm, normal heart sounds. Absent: systolic murmur, diastolic murmur, rubs, gallop, clicks GI/Abdominal exam: Present: soft, normal bowel sounds. Absent: distended, tenderness, guarding, rebound, rigid Neurological exam: Present: alert, oriented X3, CN II-XII intact Psychiatric exam: Present: normal affect, normal mood Skin exam: Present: warm, dry, intact, normal color. Absent: rash Course Vital Signs 01/05/23 22:07 Temperature 98.3 F Pulse Rate 123 H Respiratory 16 Rate Blood Pressure 132/83 O2 Sat by Pulse 98 Oximetry Medical Decision Making - Medical Decision Making Was pt. sent in by a medical professional or institution (, PA, [employer], urgent care, hospital, or fdc...) When possible be specific @ -No Did you speak to anyone other than the patient for history (EMS, parent, family, police, friend...)? What history was obtained from this source @ -No Did you review nursing and triage notes (agree or disagree)? Why? @ -I reviewed and agree with nursing and triage notes Were old charts reviewed (outside hosp., previous admission, EMS record, old EKG, old radiological studies, urgent care reports/EKG's, fdc records)? Report findings @ -No old charts were reviewed Differential Diagnosis (chest pain, altered mental status, abdominal pain women, abdominal pain men, vaginal bleeding, weakness, fever, dyspnea, syncope, headache, dizziness, GI bleed, back pain, seizure, CVA, palpatations, mental health)? @ -Differential Vaginal Bleeding: Spontaneous , threatened , molar , ectopic , bloody show, incompetent cervix, abruptioplacenta, placenta previa, uterine rupture, dysfunctional uterine bleeding, hemorrhage, uterine fibroids, this is not meant to be an all-inclusive list. EKG interpreted by me (3pts min.). @ -As above X-rays interpreted by me (1pt min.). @ -None done CT interpreted by me (1pt min.). @ -None done U/S interpreted by me (1pt. min.). @ -No. Ultrasound report shows viable IUP. What testing was considered but not performed or refused? (CT, X-rays, U/S, labs)? Why? @ -None What meds were considered but not given or refused? Why? @ -None Did you discuss the management of the patient with other professionals (professionals i.e. Dr., PA, [employer], lab, RT, psych nurse, social media campaign manager, aerial photographer, teacher, senior officer, case reviewer)? Give summary @ -No Was smoking cessation discussed for >3mins.? @ -No Was critical care preformed (if so, how long)? @ -No Were there social determinants of health that impacted care today? How? (Homelessness, low income, unemployed, alcoholism, drug addiction, transportation, low edu. Level, literacy, decrease access to med. care, alf, rehab)? @ -No Was there de-escalation of care discussed even if they declined (Discuss DNR or withdrawal of care, Hospice)? DNR status @ -No What co-morbidities impacted this encounter? (DM, HTN, Smoking, COPD, CAD, Cancer, CVA, ARF, Chemo, Hep., AIDS, mental health diagnosis, sleep apnea, morbid obesity)? @ -None Was patient admitted / discharged? Hospital course, mention meds given and route, prescriptions, significant lab abnormalities, going to OR and other pertinent info. @ -Discharged. Patient presenting with threatened miscarriage. Hemodynamically stable. Patient denies any further bleeding while in the emergency department. RhoGAM not indicated. Patient given paper prescription for repeat beta hCG in 48 hours. Also discharged with Keflex for asymptomatic bacteriuria. She is to follow-up with Dr. Jacobsen. Undiagnosed new problem with uncertain prognosis? @ -No Drug Therapy requiring intensive monitoring for toxicity (Heparin, Nitro, Insulin, Cardizem)? @ -No Were any procedures done? @ -No Diagnosis/symptom? @ -Threatened miscarriage Acute, or Chronic, or Acute on Chronic? @ -Acute Uncomplicated (without systemic symptoms) or Complicated (systemic symptoms)? @ -Uncomplicated Side effects of treatment? @ -No] Exacerbation, Progression, or Severe Exacerbation? @ -[No] Poses a threat to life or bodily function? How? (Chest pain, [place], CA, pneumonia, PE, COPD, DKA, ARF, appy, cholecystitis, CVA, Diverticulitis, Homicidal, Suicidal, threat to staff... and all critical care pts) @ -[No] Dr. Lane is my attending - Lab Data Lab Results 01/05/23 01/05/23 01/05/23 Range/Units 23:51 23:51 23:51 HCG, Qual Detected Urine Color Yellow Urine Appearance Cloudy H (Clear) Urine pH 5.5 (5.0-8.0) Ur Specific [place] 1.024 (1.001-1.035) Urine Protein Trace H (Negative) Urine Glucose (UA) Negative (Negative) Urine Ketones Negative (Negative) Urine Blood Large H (Negative) Urine Nitrite Negative (Negative) Urine Bilirubin Negative (Negative) Urine Urobilinogen 2.0 (<2.0) mg/dL Ur Leukocyte Esterase Moderate H (Negative) Urine RBC 23 H (0-5) /hpf Urine WBC 14 H (0-5) /hpf Ur Squamous Epith Cells 5 H (0-4) /hpf Urine Bacteria Rare H (None) /hpf Urine Mucus Occasional H (None) /hpf Blood Type A Positive Blood Type Recheck A Pos Bld Type Recheck Status No Antibody Screen NEGATIVE Spec Expiration Date 01/08/20232350 Disposition Clinical Impression: Threatened Disposition: HOME SELF-CARE Condition: Good Instructions (If sedation given, give patient instructions): Threatened Miscarriage (ED) Additional Instructions: Please follow up with copyist in 1-2 days. Take prescription to a local lab or OB in 48 hours for repeat beta hcg level. Increase fluid intake. Return to the emergency department if you experience new, concerning, or worsening symptoms Prescriptions: Cephalexin [Keflex] 500 mg PO Q12HR #10 cap Is patient prescribed a controlled substance at d/c from ED?: No Referrals: None,Stated [Primary Care Provider] - 1-2 days
--- NOTE | 2023-01-05 23:03 | US ---
EXAMINATION TYPE: Transabdominal DATE OF EXAM: 01/05/2023 10:52 PM COMPARISON: 12/23/22 CLINICAL INDICATION: Female, 27 years old with history of vaginal bleeding; Pt stated she noticed blo od when she was wiping one time tonight. EXAM PERFORMED: Transabdominal (TA) EXAM MEASUREMENTS: GESTATIONAL AGE / DATING Physician Established: (14 weeks/3 days) EDC: 07/03/23 Dates by First Scan: (14 weeks/2 days) EDC: 07/04/23 Dates by Current Scan for: (14 weeks/3 days) EDC: 07/03/23 MATERNAL ANATOMY Uterus: 13.8 x 11.6 x 7.7cm Right Ovary: 2.8 x 1.9 x 1.7cm Left Ovary: Not seen Post CDS / Adnexa: wnl Presence of free fluid: No Presence of corpus luteal cyst: No, placenta formed Presence of subchorionic bleed: No GESTATION / SURVEY CRL: 8.52cm (14 weeks/3 days) Yolk Sac (normal less than 6mm): Not seen. Placenta formed Heart Rate: 158 bpm Rhythm: Normal IUP: Viable IUP Age Appropriate Anatomy Cord Insertion: seen Limbs: seen Calvarium: seen Date of LMP: 09/26/22 Beta HcG (if available): Not available at this time Single live intrauterine gestation is redemonstrated. No free fluid in pelvis. Right ovary is seen. L eft ovary not clearly identified. No suspicious adnexal masses. IMPRESSION: Single live intrauterine gestation is redemonstrated. Interval adequate growth noted from most recent ultrasound.
[2023-01-06 00:14] LABS: Appearance,Urine Cloudy (Clear); Bacteria,Urine Rare /hpf; Bilirubin,Urine Negative (Negative); Blood,Urine Large (Negative); Color,Urine Yellow; Glucose,Urine (UA) Negative (Negative); Ketones,Urine Negative (Negative); Leukocyte Esterase,Urine Moderate (Negative); Mucus,Urine Occasional /hpf; Nitrite,Urine Negative (Negative); PH, Urine 5.5 (5.0-8.0); Protein,Urine Trace (Negative); RBC,Urine 23 /hpf (0-5); Specific Gravity,Urine 1.024 (1.001-1.035); Squamous Epithelial Cell,Urine 5 /hpf (0-4); WBC,Urine 14 /hpf (0-5)
[2023-01-06] MEDS ORDERED: CEPHALEXIN 500 MG CAP PO STA (00:20)
[2023-01-06 01:51] VITALS: BP 132/80; PULSE 94; RESP 20; TEMP 98
== END 2023-01-06 01:03 | disposition home or self-care (01) ==
LOC: EC 20:40
DX: O20.0 Threatened abortion (principal); Z3A.15 15 weeks gestation of pregnancy
CPT/HCPCS: 36415; 76801; 81001; 84702; 84703; 86850; 86900; 86901; 87086; 99284

== ENCOUNTER 2023-04-08 07:45 | Outpatient (CLI) | payer OTHER ==
[2023-04-08 09:01] VITALS: BP 140/72; PULSE 109; RESP 18; TEMP 97.9
--- NOTE | 2023-05-04 07:38 | P.MSEPDOC ---
Presenting Problems - Arrival Data Date of Arrival on Unit: 04/08/23 Time of Arrival on Unit: 07:45 Mode of Transport: Ambulatory - Complaint OB-Reason for Admission/Chief Complaint: Acute Nausea/Vomiting, Pain Comment: pt presents to triage for headache, n/v, vomiting x 4 this am, and abd and back pain, and rectal pressure, none of these complaints were present upon arrival Medical History - Information : 4 Para: 2 Term: 2 : 0 Abortions: Spontaneous or Elective: 1 Number of Living Children: 2 - Gestational Age Gestational Age by ARLET (wks/days): 27 Weeks and 5 Days Review of Systems - Review of Systems Constitutional: No problems Breast: No problems ENT: No problems Cardiovascular: No problems Respiratory: No problems Gastrointestinal: No problems Genitourinary: No problems Musculoskeletal: No problems Neurological: No problems Skin: No problems Vital Signs - Temperature Temperature: 97.9 F Temperature Source: Temporal Artery Scan - Pulse Right Brachial Pulse Rate: 109 Pulse Assessment Method: Automatic Cuff - Respirations Respiratory Rate: 18 Oxygen Delivery Method: Room Air - Blood Pressure Right Arm Blood Pressure: 140/72 Blood Pressure Mean: 94 Blood Pressure Source: Automatic Cuff Medical Screen Scoring - Cervical Exam Dilation (cm): 0 - Uterine Contractions Resting: Soft to palpation - Assessment - Baby A Baseline FHR: 140 Heart Rate - NICHD Category: Category I (Normal) Physician Notification - Physician Notified Physician Notified Date: 04/08/23 Physician Notified Time: 08:35 Physician: Kaykay Jacobsen - Notification Comment Comment: cat 1 fht's, cervical exam closed, thick and high, discharged home, appt on apr 21 in office, no complaints upon discharge, last bp 116/60 Maternal Triage Index - Maternal Triage Index Presenting for scheduled procedure w/no complaint: No - Stat/Priority 1 Stat Priority 1: No - Urgent/Priority 2 Urgent Priority 2: Yes Provider Notified: Kaykay Jacobsen Provider Notified Time: 08:35 Criteria Met for Priority 2: pt presents to triage for headache, n/v, vomiting x 4 this am, and abd and back pain, and rectal pressure, none of these complaints were present upon arrival - Prompt/Priority 3 Prompt Priority 3: No - Non-Urgent/Priority 4 Non-Urgent Priority 4: No Disposition - Disposition OB Disposition: Triage, Discharge to home, Written follow up instructions reviewed Discharge Date: 04/08/23 Discharge Time: 08:45 I agree with the RN Medical Screening Exam: Yes Case reviewed; plan agreed upon as documented in EMR&OBIX.: Yes Diagnosis: VOMITING OF , UNSPECIFIED
== END 2023-04-08 08:45 | disposition home or self-care (01) ==
LOC: FBPOP 07:45
PROVIDERS: ATTEND Obstetrics & Gynecology
DX: O21.9 Vomiting of pregnancy, unspecified (principal); O26.892 Other specified pregnancy related conditions, second trimester; R51.9 Headache, unspecified; M54.9 Dorsalgia, unspecified; R10.9 Unspecified abdominal pain; Z3A.27 27 weeks gestation of pregnancy
CPT/HCPCS: 99213

== ENCOUNTER 2023-06-15 21:35 | Outpatient (CLI) | payer OTHER ==
[2023-06-16 00:51] VITALS: BP 121/67; PULSE 108; RESP 16; TEMP 98.6
== END 2023-06-15 23:30 | disposition home or self-care (01) ==
LOC: FBPOP 21:35
PROVIDERS: ATTEND Obstetrics & Gynecology
DX: Z53.9 Procedure and treatment not carried out, unspecified reason (principal)
CPT/HCPCS: 59025; 84112; G0463; 99213

== ENCOUNTER 2023-06-23 15:23 | Outpatient (CLI) | payer OTHER ==
[2023-06-23 16:19] LABS: Basophils % (A) 0 %; Eosinophils # (A) 0.2 k/uL (0-0.7); Eosinophils % (A) 2 %; HCT 35.2 % (34.0-46.0); HGB 11.6 gm/dL (11.4-16.0); Hypochromasia Slight; Lymphocytes # (A) 2.3 k/uL (1.0-4.8); Lymphocytes % (A) 24 %; MCH 27.5 pg (25.0-35.0); MCV 83.5 fL (80.0-100.0); Mean Platelet Volume 8.3; Monocytes # (A) 0.5 k/uL (0-1.0); Monocytes % (A) 5 %; Neutrophils # (A) 6.2 k/uL (1.3-7.7); Neutrophils % (A) 66 %; Platelet Count 275 k/uL (150-450); RBC 4.21 m/uL (3.80-5.40); RDW 14.3 % (11.5-15.5); WBC 9.4 k/uL (3.8-10.6)
[2023-06-23 16:26] VITALS: BP 131/78; PULSE 106; RESP 18; TEMP 98
[2023-06-23 16:36] LABS: Creatinine,Urine Random 58.7 mg/dL; Protein/Creatinine Ratio,Urine 0.273
[2023-06-23 16:38] LABS: ALT 14 U/L (4-34); AST 21 U/L (14-36); African American GFR (CKD) >90 (>60 ml/min/1.73 sqM); Blood Urea Nitrogen 4 mg/dL (7-17); LDH 219 U/L (120-246); Non-African American GFR(CKD) >90 (>60 ml/min/1.73 sqM); Uric Acid 4.1 mg/dL (3.7-7.4)
[2023-06-23 17:20] LABS: Appearance,Urine Cloudy (Clear); Bacteria,Urine Occasional /hpf; Bilirubin,Urine Negative (Negative); Blood,Urine Negative (Negative); Color,Urine Colorless; Glucose,Urine (UA) Negative (Negative); Ketones,Urine Negative (Negative); Leukocyte Esterase,Urine Large (Negative); Mucus,Urine Rare /hpf; Nitrite,Urine Negative (Negative); Protein,Urine Negative (Negative); RBC,Urine 2 /hpf (0-5); Squamous Epithelial Cell,Urine 11 /hpf (0-4); Urobilinogen,Urine <2.0 mg/dL (<2.0); WBC,Urine 5 /hpf (0-5)
== END 2023-06-23 16:55 | disposition home or self-care (01) ==
LOC: FBPOP 15:23
PROVIDERS: ATTEND Obstetrics & Gynecology
DX: O14.90 Unspecified pre-eclampsia, unspecified trimester (principal)
CPT/HCPCS: 36415; 59025; 81001; 82565; 82570; 83615; 84156; 84450; 84460; 84520; 84550; 85025

== ENCOUNTER 2023-06-30 06:13 | Inpatient (IN) | payer OTHER ==
[2023-06-30] MEDS ORDERED: CARBOPROST TROMETHAMINE 250 MCG/ML 1 ML AMP IM PRN (06:42)
[2023-06-30] MEDS ORDERED: miSOPROStoL 200 MCG TAB PO PRN (06:42)
[2023-06-30] MEDS ORDERED: LIDOCAINE 0.5% (PF) 5 MG/ML (50 ML SDV) SQ PRN (06:42)
[2023-06-30] MEDS ORDERED: TERBUTALINE 1 MG/ML VIAL SQ PRN (06:42)
[2023-06-30] MEDS ORDERED: TRANEXAMIC 1,000 MG/100ML-NACL 1,000 MG in EMPTY BAG 1 BAG IV PRN (06:42)
[2023-06-30] MEDS ORDERED: METHYLERGONOVINE 0.2 MG/ML 1 ML AMP IM PRN (06:42)
[2023-06-30] MEDS ORDERED: OXYTOCIN 10 UNIT/ML 1 ML VIAL IM PRN (06:42)
[2023-06-30] MEDS ORDERED: OXYTOCIN 30 UNITS/500 ML NS 30 UNIT in SALINE 1 500ML.BAG IV SCH ×2 (06:45→12:30)
[2023-06-30] MEDS: LACTATED RINGERS 1,000 ML IV SCH ×2 (06:55→09:26)
[2023-06-30 06:56] LABS: Basophils % (A) 0 %; Eosinophils # (A) 0.3 k/uL (0-0.7); Eosinophils % (A) 3 %; HCT 34.1 % (34.0-46.0); HGB 11.5 gm/dL (11.4-16.0); Lymphocytes # (A) 2.6 k/uL (1.0-4.8); Lymphocytes % (A) 26 %; MCH 28.1 pg (25.0-35.0); MCHC 33.8 g/dL (31.0-37.0); MCV 83.1 fL (80.0-100.0); Mean Platelet Volume 8.4; Monocytes # (A) 0.7 k/uL (0-1.0); Monocytes % (A) 7 %; Neutrophils # (A) 6.3 k/uL (1.3-7.7); Neutrophils % (A) 63 %; Platelet Count 257 k/uL (150-450); RBC 4.11 m/uL (3.80-5.40); WBC 10.1 k/uL (3.8-10.6)
[2023-06-30 07:17] LABS: Glucose,Whole Blood 107 mg/dL (70-110)
--- NOTE | 2023-06-30 07:25 | P.HPOB ---
History of Present Illness H&P Date: 06/30/23 Chief Complaint: Induction of labor 28 year old presents at 39 weeks 4 days for induction of labor. Her cervix is 3/70/-2 and she is estevan irregularly. heart tones 140 with moderate variability and reactive. She is gestational diabetic and not well controlled. She actually stopped checking her sugars for the last 2 days. today fasting sugar is 107. Review of Systems All systems: negative Constitutional: Denies chills, Denies fever Eyes: denies blurred vision, denies pain Ears, nose, mouth and throat: Denies headache, Denies sore throat Cardiovascular: Denies chest pain, Denies shortness of breath Respiratory: Denies cough Gastrointestinal: Denies abdominal pain, Denies diarrhea, Denies nausea, Denies vomiting Genitourinary: Denies dysuria, Denies hematuria Musculoskeletal: Denies myalgias Integumentary: Denies pruritus, Denies rash Neurological: Denies numbness, Denies weakness Psychiatric: Denies anxiety, Denies depression Endocrine: Denies fatigue, Denies weight change Past Medical History Past Medical History: No Reported History Additional Past Medical History / Comment(s): Obstetric history: Pt has had 2 previous full term vaginal deliveries and a few spontaneous abortions. Blood type is A+, GBS negative, rubella immune, hep is B- RPR nonreactive, toxo negative. Pt does have gestational diabetes and was followed with NSTs and BPPs. History of Any Multi-Drug Resistant Organisms: None Reported Past Surgical History: No Surgical Hx Reported Past Anesthesia/Blood Transfusion Reactions: No Reported Reaction Past Psychological History: No Psychological Hx Reported Smoking Status: Never smoker Past Alcohol Use History: None Reported Past Drug Use History: None Reported - Past Family History Father Family Medical History: Diabetes Mellitus Medications and Allergies Home Medications Medication Instructions Recorded Confirmed Type No Known Home Medications 06/15/23 06/23/23 History Allergies Allergy/AdvReac Type Severity Reaction Status Date / Time No Known Allergies Allergy Verified 06/30/23 06:28 Exam Osteopathic Statement: *. No significant issues noted on an osteopathic structural exam other than those noted in the History and Physical/Consult. Intake and Output 06/29/23 06/30/23 06/30/23 22:59 06:59 14:59 Other: Weight 113.398 kg Heart: RRR Lungs: CTAB Abdomen: soft, nontender Extremeties: neg audi's Results Result Diagrams: 06/30/23 06:43 Assessment and Plan (1) Encounter for induction of labor Current Visit: Yes Status: Acute Code(s): Z34.90 - ENCNTR FOR SUPRVSN OF NORMAL , UNSP, UNSP TRIMESTER SNOMED Code(s): 337283444 (2) Gestational diabetes Current Visit: Yes Status: Acute Code(s): O24.419 - GESTATIONAL DIABETES MELLITUS IN , UNSP CONTROL SNOMED Code(s): 37160359 (3) Noncompliance Current Visit: Yes Status: Acute Code(s): Z91.199 - PT NONCOMPL WITH OTHER MED TRTMT AND REGIMEN D/T UNSP REASON SNOMED Code(s): 8726760 Plan: 1. induction of labor with amniotomy and pitocin 2. check blood sugars hourly 3. anticipate normal vaginal delivery
[2023-06-30] MEDS ORDERED: SODIUM CHLORIDE 0.9% 250 ML BAG ONE (08:56)
[2023-06-30] MEDS ORDERED: fentaNYL (PF) 50 MCG/ML 5 ML AMP ONE (08:56)
[2023-06-30] MEDS ORDERED: ROPIVACAINE 5 MG/ML 30 ML VIAL ONE (08:56)
[2023-06-30 09:43] LABS: Glucose,Whole Blood 99 mg/dL (70-110)
[2023-06-30 10:33] LABS: Glucose,Whole Blood 95 mg/dL (70-110)
[2023-06-30] MEDS ORDERED: ACETAMINOPHEN TAB 325 MG TAB PO PRN (12:28)
[2023-06-30] MEDS ORDERED: diphenhydrAMINE 50 MG/ML 1 ML VIAL IVP PRN ×2 (12:28)
[2023-06-30] MEDS ORDERED: ZOLPIDEM 5 MG TAB PO PRN (12:28)
[2023-06-30] MEDS ORDERED: diphenhydrAMINE 50 MG CAP PO PRN (12:28)
[2023-06-30] MEDS ORDERED: BENZOCAINE/MENTHOL SPRAY 1 GM/SPRAY AEROSOL TOPICAL PRN (12:28)
[2023-06-30] MEDS ORDERED: SIMETHICONE 80 MG CHEWABLE PO PRN (12:28)
[2023-06-30] MEDS ORDERED: HYDROCORTISONE 2.5% RECTAL CREAM 30 GM TUBE RECTAL PRN (12:28)
[2023-06-30] MEDS ORDERED: diphenhydrAMINE 25 MG CAP PO PRN (12:28)
[2023-06-30] MEDS ORDERED: LANOLIN CREAM 5 GM TUBE TOPICAL PRN (12:28)
[2023-06-30] MEDS: IBUPROFEN 600 MG TAB PO PRN ×2 (12:46→19:05)
[2023-06-30] MEDS ORDERED: LACTATED RINGERS 1,000 ML IV SCH (13:33)
[2023-06-30] MEDS ORDERED: SENNOSIDES-DOCUSATE SODIUM 1 EACH TAB PO SCH (20:00)
--- NOTE | 2023-06-30 20:39 | P.PROBDLV ---
Vaginal Delivery Note - . Vaginal Delivery Note: 28 year old presents at 39 weeks 4 days for induction of labor. Her cervix is 3/70/-2 and she is estevan irregularly. heart tones 140 with moderate variability and reactive. She is gestational diabetic and not well controlled. She actually stopped checking her sugars for the last 2 days. today fasting sugar is 107. Pitocin was started and amniotomy performed at 7:17 AM, clear fluid noted. When she was uncomfortable she did get an epidural. Her cervix was completely dilated at 11:33 AM. She pushed, delivered a viable female infant over intact perineum under epidural anesthesia at 11:49 AM. Head delivered OA, anterior shoulder delivered gentle downward guidance followed by posterior shoulder and rest of body. Nose and mouth bulb suctioned, cord clamped and cut, infant placed mother's abdomen. Apgars 9, 9, weight 7 pounds 10.6 ounces. Placenta delivered spontaneously, intact with three-vessel cord at 11:53 AM. Vagina, cervix, and perineum inspected. First-degree midline laceration was repaired with 3-0 Vicryl. Estimated blood loss 200 mL. Mother and baby in stable condition.
[2023-07-01] MEDS: IBUPROFEN 600 MG TAB PO PRN (04:45)
[2023-07-01 06:26] LABS: Basophils # (A) 0.1 k/uL (0-0.2); Basophils % (A) 0 %; Eosinophils # (A) 0.4 k/uL (0-0.7); Eosinophils % (A) 3 %; HCT 31.9 % (34.0-46.0); HGB 10.5 gm/dL (11.4-16.0); Hypochromasia Slight; Lymphocytes # (A) 3.1 k/uL (1.0-4.8); Lymphocytes % (A) 26 %; MCH 27.8 pg (25.0-35.0); MCV 84.2 fL (80.0-100.0); Mean Platelet Volume 8.6; Monocytes # (A) 0.6 k/uL (0-1.0); Monocytes % (A) 5 %; Neutrophils # (A) 7.4 k/uL (1.3-7.7); Neutrophils % (A) 63 %; Platelet Count 231 k/uL (150-450); RBC 3.79 m/uL (3.80-5.40); RDW 15.2 % (11.5-15.5); WBC 11.7 k/uL (3.8-10.6)
--- NOTE | 2023-07-01 07:47 | P.DS ---
Providers Date of admission: 06/30/23 06:13 Expected date of discharge: 07/01/23 Attending physician: Kaykay Jacobsen Primary care physician: Stated None - Discharge Diagnosis(es) (1) Encounter for induction of labor Current Visit: Yes Status: Resolved (2) Gestational diabetes Current Visit: Yes Status: Resolved (3) Noncompliance Current Visit: Yes Status: Resolved (4) Normal vaginal delivery Current Visit: No Status: Acute Hospital Course: Patient presented for induction of labor. She underwent a normal vaginal delivery. course has been uneventful. She denies nausea, vomiting, chest pain, shortness of breath or calf pain. Patient will be discharged home day #1 in stable condition to follow-up with me in 6 weeks. Plan - Discharge Summary New Discharge Prescriptions: New Docusate [Colace] 100 mg PO BID #60 capsule Discharge Medication List Docusate [Colace] 100 mg PO BID #60 capsule 07/01/23 [Rx] Follow up Appointment(s)/Referral(s): Kaykay Jacobsen DO [Doctor of Osteopathic Medicine] - 08/09/23 10:45 am Discharge Disposition: HOME SELF-CARE
[2023-07-01 10:51] VITALS: BP 112/71; PULSE 100; RESP 15; TEMP 98.2
== END 2023-07-01 12:29 | disposition home or self-care (01) | DRG 560 ==
LOC: 4FBP 06:13
PROVIDERS: ADMIT Obstetrics & Gynecology; ATTEND Obstetrics & Gynecology
PROC: 10E0XZZ Delivery of Products of Conception, External Approach (ICD-10-PCS; principal; 2023-06-30)
PROC: 0HQ9XZZ Repair Perineum Skin, External Approach (ICD-10-PCS; 2023-06-30)
PROC: 10907ZC Drainage of Amniotic Fluid, Therapeutic from Products of Conception, Via Natural or Artificial Opening (ICD-10-PCS; 2023-06-30)
PROC: 3E033VJ Introduction of Other Hormone into Peripheral Vein, Percutaneous Approach (ICD-10-PCS; 2023-06-30)
PROC: 3E0R3BZ Introduction of Anesthetic Agent into Spinal Canal, Percutaneous Approach (ICD-10-PCS; 2023-06-30)
DX: O24.429 Gestational diabetes mellitus in childbirth, unspecified control (principal); Z37.0 Single live birth; O70.0 First degree perineal laceration during delivery; Z3A.39 39 weeks gestation of pregnancy; Z83.3 Family history of diabetes mellitus; Z91.198 Patient's noncompliance with other medical treatment and regimen for other reason; Z28.310 Unvaccinated for COVID-19
CPT/HCPCS: 85025; 86850; 86900; 86901